=== PATIENT | female | born 1940 | race Caucasian/White ===

== ENCOUNTER 2023-04-18 16:01 | Emergency (ER) | payer MEDICARE ==
[~2023-04-18] VITALS: Ht 149.9 cm; Wt 58.5 kg
[2023-04-18 16:11] VITALS: TEMP 98
[2023-04-18] MEDS ORDERED: IV NS 0.9% 250 ML IV ONE (16:31)
[2023-04-18] MEDS ORDERED: IOHEXOL-350 100 ML VIAL IV ONE (16:31)
[2023-04-18] MEDS ORDERED: TRIA1TAB3 PO (17:20)
[2023-04-18] MEDS ORDERED: TIOT18CA3 IH (17:20)
[2023-04-18] MEDS ORDERED: METF-440 PO (17:20)
[2023-04-18] MEDS ORDERED: ATEN50TA PO (17:20)
[2023-04-18] MEDS ORDERED: LEVO88TA5 PO (17:20)
[2023-04-18 17:22] LABS: BASOPHILS % (AUTO) 0.7 % (0.0-2.0); EOSINOPHILS # (AUTO) 0.2 K/uL (0.0-0.7); EOSINOPHILS % (AUTO) 3.2 % (0.0-6.0); HEMATOCRIT 30 % (33-45); HEMOGLOBIN 9.7 g/dL (11.5-14.8); LYMPHOCYTES # (AUTO) 1.9 K/uL (0.8-4.8); LYMPHOCYTES % (AUTO) 31.8 % (20.0-44.0); MEAN CORPUSCULAR HEMOGLOBIN 30 PG (26.0-33.0); MEAN CORPUSCULAR HGB CONC 33 g/dl (31.0-36.0); MEAN CORPUSCULAR VOLUME 92 fL (82-100); MONOCYTES # (AUTO) 1.2 K/uL (0.1-1.30); MONOCYTES % (AUTO) 20.3 % (2.0-12.0); NEUTROPHILS # (AUTO) 2.6 K/uL (1.8-8.9); PLATELET COUNT (AUTO) 360 K/uL (150-450); RED BLOOD CELL COUNT(AUTO) 3.24 MIL/uL (4.0-5.2); RED CELL DISTRIBUTION WIDTH 20.4 % (11.5-15.0)
[2023-04-18 17:31] LABS: CALCIUM, SERUM 8.3 mg/dL (8.5-10.1); CARBON DIOXIDE 28 mmol/L (21-32); CHLORIDE 99 mmol/L (98-107); CREATININE 0.6 mg/dL (0.6-1.3); GLUCOSE 112 mg/dL (74-106); POTASSIUM 3.4 mmol/L (3.5-5.1); SODIUM SERUM 135 mmol/L (136-145); UREA NITROGEN, BLOOD 21 mg/dL (7-18)
[2023-04-18 17:40] LABS: INR 1.03 (0.91-1.10); PROTHROMBIN TIME 10.9 SECS (9.2-11.1)
[2023-04-18 18:04] LABS: APPEARANCE,URINE CLEAR (CLEAR); BILIRUBIN,URINE NEGATIVE (NEGATIVE); BLOOD, URINE NEGATIVE Ery/uL (NEGATIVE); COLOR,URINE YELLOW (YELLOW); KETONES,URINE NEGATIVE (NEGATIVE); LEUKOCYTE ESTERASE ,URINE NEGATIVE (NEGATIVE); NITRITE, URINE NEGATIVE (NEGATIVE); PH,URINE 7.5 (5.0-8.0); PROTEIN,URINE NEGATIVE (NEGATIVE); UGLUCOSE NEGATIVE (NEGATIVE); UROBILINOGEN,URINE 0.2 EU/dL (0.2)
[2023-04-18 18:48] LABS: EOSINOPHILS % (MANUAL) 3 % (0-4); LYMPHOCYTES % (MANUAL) 34 % (16-48); MONOCYTES % (MANUAL) 14 % (0-11.0); NEUTROPHILS % (MANUAL) 49 (42-76); PLATELET ESTIMATE ADEQUATE
[2023-04-18 18:49] LABS: ANISOCYTOSIS 1+; OVALOCYTES RARE; TEAR DROP CELLS RARE
[2023-04-18 23:18] VITALS: BP 94/55; O2SAT 99
[2023-04-19] MEDS ORDERED: IV NS 0.9% 1,000 ML BAG IV ONE (00:30)
== END 2023-04-19 01:15 | disposition still patient (30) ==
LOC: ER 16:08
DX: G45.9 Transient cerebral ischemic attack, unspecified (principal); D64.9 Anemia, unspecified; R47.81 Slurred speech; J44.9 Chronic obstructive pulmonary disease, unspecified; E11.9 Type 2 diabetes mellitus without complications; Z79.899 Other long term (current) drug therapy; Z60.2 Problems related to living alone; Z88.2 Allergy status to sulfonamides; Z88.5 Allergy status to narcotic agent
CPT/HCPCS: 99291; 70498; 93005; 70496; 85025; 80048; 81003; 36415; 84484; 85730; 70450; 96360; 85007; J7050; Q9967; J7030